=== PATIENT | female | born 1950 | race Caucasian/White ===

== ENCOUNTER 2017-05-05 12:38 | Outpatient (CLI) | payer OTHER | END 2017-05-06 08:35 | disposition home or self-care (01) | LOC: SONOGRAMA 12:38 | DX: R22.1 Localized swelling, mass and lump, neck (principal); N63.21 Unspecified lump in the left breast, upper outer quadrant; N63.11 Unspecified lump in the right breast, upper outer quadrant ==

== ENCOUNTER 2017-12-15 12:54 | Outpatient (CLI) | payer OTHER | END 2017-12-15 12:57 | disposition home or self-care (01) | LOC: RAD 12:54 | DX: M12.88 Other specific arthropathies, not elsewhere classified, other specified site (principal); M46.47 Discitis, unspecified, lumbosacral region; M47.899 Other spondylosis, site unspecified ==

== ENCOUNTER 2017-12-31 08:04 | Outpatient (CLI) | payer OTHER | END 2017-12-31 09:00 | disposition home or self-care (01) | LOC: NUCLEAR 08:04 | DX: M81.0 Age-related osteoporosis without current pathological fracture (principal); I87.2 Venous insufficiency (chronic) (peripheral) ==

== ENCOUNTER 2018-06-23 11:06 | Outpatient (CLI) | payer OTHER | END 2018-06-23 11:10 | disposition home or self-care (01) | LOC: SONOGRAMA 11:06 | DX: R10.9 Unspecified abdominal pain (principal); N94.89 Other specified conditions associated with female genital organs and menstrual cycle ==

== ENCOUNTER 2018-06-25 10:28 | Outpatient (CLI) | payer OTHER | END 2018-06-25 10:32 | disposition home or self-care (01) | LOC: MAMO-SONO 10:28 | DX: Z12.31 Encounter for screening mammogram for malignant neoplasm of breast (principal); Z87.898 Personal history of other specified conditions; N60.11 Diffuse cystic mastopathy of right breast; N60.12 Diffuse cystic mastopathy of left breast; N63.10 Unspecified lump in the right breast, unspecified quadrant; N63.20 Unspecified lump in the left breast, unspecified quadrant ==

== ENCOUNTER 2019-01-13 08:16 | Outpatient (CLI) | payer OTHER | END 2019-01-13 08:32 | disposition home or self-care (01) | LOC: NUCLEAR 08:16 | DX: I87.2 Venous insufficiency (chronic) (peripheral) (principal) ==

== ENCOUNTER 2019-09-01 07:28 | Outpatient (CLI) | payer OTHER | END 2019-09-01 07:38 | disposition home or self-care (01) | LOC: MAMO-SONO 07:28 | DX: N63.11 Unspecified lump in the right breast, upper outer quadrant (principal) ==

== ENCOUNTER 2019-12-10 10:44 | Outpatient (CLI) | payer OTHER ==
[~2019-12-10 10:44] MED LIST: CIPRO500 MG PO; COZAAR100 MG; MAXITROL EYE DRO5 ML OP
[2019-12-10] MEDS ORDERED: FLONASE ALLERG9.9 ML NASAL (10:58)
== END 2019-12-10 16:10 | disposition home or self-care (01) ==
LOC: OFIC 805 10:44
PROVIDERS: ATTEND Otolaryngology Otology & Neurotology
DX: J30.89 Other allergic rhinitis (principal); H92.02 Otalgia, left ear; G44.89 Other headache syndrome

== ENCOUNTER → 2019-12-13 13:18 | Outpatient (CLI) | payer OTHER ==
[~2019-12-13 13:18] MED LIST changes: +FLONASE ALLERG9.9 ML NASAL
== END | disposition home or self-care (01) ==
LOC: LAB 13:18
PROVIDERS: ATTEND Radiology Diagnostic Radiology
DX: N20.0 Calculus of kidney (principal)

== ENCOUNTER 2020-01-06 08:55 | Outpatient (CLI) | payer OTHER | END 2020-01-06 09:09 | disposition home or self-care (01) | LOC: MRI 08:55 | PROVIDERS: ATTEND Physical Medicine & Rehabilitation | DX: M54.5 Low back pain (principal); S32.010A Wedge compression fracture of first lumbar vertebra, initial encounter for closed fracture | CPT/HCPCS: 72148 ==

== ENCOUNTER 2020-01-13 13:05 | Outpatient (CLI) | payer OTHER | END 2020-01-13 13:12 | disposition home or self-care (01) | LOC: NUCLEAR 13:05 | PROVIDERS: ATTEND Physical Medicine & Rehabilitation | DX: M81.0 Age-related osteoporosis without current pathological fracture (principal) ==

== ENCOUNTER → 2020-10-06 10:26 | Outpatient (CLI) | payer OTHER | END | disposition home or self-care (01) | LOC: NUCLEAR 10:26 | PROVIDERS: ATTEND Podiatrist Foot Surgery | DX: I73.9 Peripheral vascular disease, unspecified (principal); M79.672 Pain in left foot; M79.671 Pain in right foot; R60.9 Edema, unspecified ==

== ENCOUNTER 2020-10-24 11:19 | Outpatient (CLI) | payer OTHER | END 2020-10-24 11:23 | disposition home or self-care (01) | LOC: RAD 11:19 | PROVIDERS: ATTEND Physical Medicine & Rehabilitation | DX: M19.071 Primary osteoarthritis, right ankle and foot (principal); M19.072 Primary osteoarthritis, left ankle and foot; M79.672 Pain in left foot; M79.671 Pain in right foot ==

== ENCOUNTER 2020-12-11 09:27 | Outpatient (CLI) | payer OTHER | END 2020-12-11 09:28 | disposition home or self-care (01) | LOC: LAB 09:27 | PROVIDERS: ATTEND Internal Medicine Cardiovascular Disease | DX: I10 Essential (primary) hypertension (principal) ==

== ENCOUNTER 2020-12-12 12:08 | Outpatient (CLI) | payer OTHER | END 2020-12-12 12:18 | disposition home or self-care (01) | LOC: RAD 12:08 | PROVIDERS: ATTEND Physical Medicine & Rehabilitation | DX: M19.071 Primary osteoarthritis, right ankle and foot (principal); M19.072 Primary osteoarthritis, left ankle and foot ==

== ENCOUNTER 2021-05-03 13:05 | Emergency (ER) | payer OTHER ==
[~2021-05-03] VITALS: Ht 154.9 cm; Wt 52.2 kg
[2021-05-03] MEDS ORDERED: ZITHROMAX500 MG PO (18:03)
== END 2021-05-03 19:40 | disposition home or self-care (01) ==
LOC: ER 13:05
DX: R10.32 Left lower quadrant pain (principal); Z11.52 Encounter for screening for COVID-19

== ENCOUNTER 2021-06-22 08:53 | Outpatient (CLI) | payer OTHER ==
[~2021-06-22 08:53] MED LIST changes: +ZITHROMAX500 MG PO
== END 2021-06-22 11:42 | disposition home or self-care (01) ==
LOC: RAD 08:53
PROVIDERS: ATTEND Podiatrist Foot Surgery
DX: M77.31 Calcaneal spur, right foot (principal); M77.32 Calcaneal spur, left foot

== ENCOUNTER 2022-04-05 12:25 | Outpatient (CLI) | payer OTHER | END 2022-04-05 12:33 | disposition home or self-care (01) | LOC: MAMO-SONO 12:25 | PROVIDERS: ATTEND Internal Medicine Cardiovascular Disease | DX: N63.11 Unspecified lump in the right breast, upper outer quadrant (principal) ==

== ENCOUNTER 2024-01-08 07:16 | Outpatient (CLI) | payer OTHER | END 2024-01-08 07:17 | disposition home or self-care (01) | LOC: NUCLEAR 07:16 | PROVIDERS: ATTEND Internal Medicine Gastroenterology | DX: K31.84 Gastroparesis (principal) | CPT/HCPCS: 78264; A9541 ==

== ENCOUNTER 2024-02-17 07:38 | Outpatient (CLI) | payer OTHER | END 2024-02-17 07:40 | disposition home or self-care (01) | LOC: NUCLEAR 07:38 | PROVIDERS: ATTEND Internal Medicine Cardiovascular Disease | DX: R07.9 Chest pain, unspecified (principal) ==

== ENCOUNTER 2025-01-07 10:37 | Outpatient (CLI) | payer OTHER | END 2025-01-07 10:42 | disposition home or self-care (01) | LOC: MAMO-SONO 10:37 | PROVIDERS: ATTEND Internal Medicine Cardiovascular Disease | DX: N60.11 Diffuse cystic mastopathy of right breast (principal); N60.12 Diffuse cystic mastopathy of left breast; Z12.31 Encounter for screening mammogram for malignant neoplasm of breast ==